=== PATIENT | female | born 1995 | race Caucasian/White ===

== ENCOUNTER → 2016-08-24 | Outpatient (CLI) | payer OTHER ==
--- NOTE | 2016-08-24 15:24 | US ---
EXAM DESCRIPTION: US THYROID CLINICAL HISTORY: THYROID NODULE COMPARISON: None. TECHNIQUE: Sonographic images of the thyroid are obtained. FINDINGS: Right lobe thyroid measures 5.2 x 1.9 x 1.6 cm. The isthmus measures 4 mm thickness. There is a nodule to the right of midline in the isthmus Nodule 1: Size: 8 x 8 x 3 mm Location: Right of midline isthmus 1.Composition: Mixed cystic and solid 2.Echogenicity:Hypoechoic 3.Shape: Wider than tall 4.Margins: Smooth 5.Echogenic foci: None Patient has a history of previous partial resection of the left lobe. The left lobe measures 3.0 x 0.6 x 0.8 cm and appears heterogeneous in echogenicity without focal cystic or solid nodule. In the area of palpable abnormality of the right neck, there are 2 lymph nodes measuring 2.3 x 1.1 x 1 0.4 cm and 1.0 x 0.7 x 0.3 cm. IMPRESSION: Partial resection of the left lobe thyroid is seen. Small less than 1 cm solid nodule of the isthmus is noted. Consider 6 month sonographic followup imaging. There are 2 nonspecific lymph nodes in the right neck in the area palpable abnormality. Electronically signed by: Han Davison MD 08/24/2016 15:22
== END ==
LOC: US 14:04
PROVIDERS: ATTEND Family Medicine
DX: E04.2 Nontoxic multinodular goiter (principal)

== ENCOUNTER → 2016-09-21 | Outpatient (CLI) | payer OTHER | END | disposition home or self-care (01) | LOC: GMAB 13:54 | PROVIDERS: ATTEND Family Medicine | DX: E04.2 Nontoxic multinodular goiter (principal) ==

== ENCOUNTER → 2017-03-08 | Outpatient (CLI) | payer OTHER | LOC: GMAB 12:32 | PROVIDERS: ATTEND Family Medicine | DX: E06.3 Autoimmune thyroiditis (principal) ==

== ENCOUNTER → 2018-09-18 | Outpatient (CLI) | payer OTHER | LOC: GMAE 11:05 | PROVIDERS: ATTEND Family Medicine | DX: E06.3 Autoimmune thyroiditis (principal) ==